=== PATIENT | female | born 1950 | race Caucasian/White ===

== ENCOUNTER 2019-10-09 15:52 | Inpatient (IN) | payer MEDICARE ==
[~2019-10-09] VITALS: Ht 162.6 cm; Wt 135.9 kg
[2019-10-09] VITALS (7 sets, daily range): BP systolic 69–110; BP diastolic 45–87; BMI 49.2
[2019-10-09 16:39] LABS: BASOPHILS 0.8 % (0-2); EOSINOPHILS 0.7 % (0-7); HEMATOCRIT 26.6 % (36.0-48.0); HEMOGLOBIN 7.9 g/dL (12-16); IMMATURE GRANULOCYTES 4.2 % (0-5); LYMPHOCYTES 13.7 % (15-50); MCH 25.3 pg (26.0-34.0); MCHC 29.7 g/dL (31.0-37.0); MCV 85.3 fL (80.0-100.0); MEAN PLATELET VOLUME 9.4 fL (7.4-10.4); MONOCYTES 12.6 % (2-11); PLATELET COUNT 53 10x3/uL (130-400); RBC 3.12 10x6/uL (4.00-5.40); RDW 27.1 % (11.5-14.5); WBC 8.8 10x3/uL (4.8-10.8)
[2019-10-09 16:50] LABS: INR 1.6 (0.85-1.17); PROTIME 18.9 SECONDS (11.6-15.0)
[2019-10-09 16:58] LABS: CALC OSMOLALITY 269 mosm/kg (275-300); CALCIUM 8.1 mg/dL (8.5-10.1); CARBON DIOXIDE 32.8 mmol/L (21.0-32.0); CHLORIDE - SERUM 98 mmol/L (98-107); CREATININE - SERUM 4.1 mg/dL (0.6-1.3); GLUCOSE 139 mg/dL (74-106); POTASSIUM - SERUM 3.7 mmol/L (3.5-5.1); SODIUM 131 mmol/L (136-145); UREA NITROGEN 27 mg/dL (7-18); eGFR NON AFRICAN AMERICAN 11 mL/min (90-120)
--- NOTE | 2019-10-09 17:20 | NUR ---
MD NOTIFED THAT PT BP IS LOW, ORDERED DOPAMINE.
[2019-10-09 17:35] LABS: ALBUMIN 2.5 g/dL (3.4-5.0); ALKALINE PHOSPHATASE 237 U/L (30-120); ALT (SGPT) 25 U/L (10-68); BILIRUBIN - TOTAL 3.67 mg/dL (0.2-1.3); CKMB 2.1 U/L (0.0-3.6); CREATINE KINASE 25 UL (21-215); MAGNESIUM - SERUM 2.1 mg/dL (1.8-2.4); PRO BNP 10508 pg/mL (0-125); PROTEIN - SERUM 6.8 g/dL (6.4-8.2); THYROID STIMULATING HORMONE 4.34 uIU/mL (0.36-3.74); TROPONIN-I 0.043 ng/mL (0.000-0.060)
[2019-10-09 17:41] LABS: C-REACTIVE PROTEIN 6.9 mg/dL (0.0-0.9); PLATELET ESTIMATE DECREASED
--- NOTE | 2019-10-09 19:39 | NUR ---
PT TO RADIOLOGY VIA STRETCHER AT THIS TIME.
--- NOTE | 2019-10-09 20:22 | NUR ---
PT RETURNED FROM RADIOLOGY AT THIS TIME.
--- NOTE | 2019-10-09 20:50 | NUR ---
PT'S O2 SAT 88% SINCE FALLING ASLEEP AND BREATHING THROUGH MOUTH EDP INFORMED, VERBAL ORDERS TO PLACE PT ON 40 % VENTI MASK. RT PAGED FOR MASK, NONE IN DEPARTMENT.
--- NOTE | 2019-10-09 21:05 | NUR ---
RT AT PT'S BEDSIDE.
--- NOTE | 2019-10-09 21:37 | NUR ---
PT'S O2 SAT STILL NOT IMPROVING WITH MASK, EDP INFORMED. PT MOVED TO TRAUMA ROOM FOR INTUBATION.
--- NOTE | 2019-10-09 22:10 | NUR ---
EDP TAN AND RESPIRATORY AT BEDSIDE. PT INTUBATED WITH 7.5 ETT. 25 AT THE LIP.
--- NOTE | 2019-10-09 23:16 | NUR ---
patient arrived to unit. no sedation. patient trying to pull at tube. no restraints on. patient gagging on et tube. see assessment.
--- NOTE | 2019-10-09 23:34 | NUR ---
PATIENT INTUBATED UNABLE TO DO SRS AND HISTORY
--- NOTE | 2019-10-09 23:39 | NUR ---
called er nurse to see why vanc was not given at 6 pm and patient arrived at 1030 to unit.
--- NOTE | 2019-10-09 23:43 | NUR ---
dopamine infusing at 25 mcg upon arrival. max is 20 mcg per order.
[2019-10-09 23:47] LABS: CKMB 3.2 U/L (0.0-3.6); CREATINE KINASE 35 UL (21-215); TROPONIN-I 0.056 ng/mL (0.000-0.060)
[2019-10-10] VITALS (70 sets, daily range): BP systolic 78–122; BP diastolic 51–88; Ht 162.6 cm; Wt 135.9 kg
--- NOTE | 2019-10-10 04:45 | NUR ---
SPOKE WITH DR ESTEBAN. NEW ORDERS
[2019-10-10 05:32] LABS: CREATINE KINASE 25 UL (21-215)
[2019-10-10 05:56] LABS: BASOPHILS 0.5 % (0-2); EOSINOPHILS 0.9 % (0-7); HEMATOCRIT 30.3 % (36.0-48.0); HEMOGLOBIN 9.1 g/dL (12-16); IMMATURE GRANULOCYTES 3.6 % (0-5); LYMPHOCYTES 13.9 % (15-50); MCH 25.3 pg (26.0-34.0); MCV 84.4 fL (80.0-100.0); MONOCYTES 16.9 % (2-11); NEUTROPHILS 64.2 % (40-80); RBC 3.59 10x6/uL (4.00-5.40); RDW 27.2 % (11.5-14.5); WBC 8.6 10x3/uL (4.8-10.8)
[2019-10-10 05:59] LABS: PLATELET COUNT 83 10x3/uL (130-400)
[2019-10-10 06:08] LABS: ANION GAP 12.1 mmol/L (8-16); CALCIUM 8.9 mg/dL (8.5-10.1); CARBON DIOXIDE 25.5 mmol/L (21.0-32.0); CREATININE - SERUM 4.5 mg/dL (0.6-1.3)
[2019-10-10 06:09] LABS: ALBUMIN 2.7 g/dL (3.4-5.0)
[2019-10-10 06:12] LABS: POTASSIUM - SERUM 4.6 mmol/L (3.5-5.1)
[2019-10-10 06:23] LABS: TROPONIN-I 0.066 ng/mL (0.000-0.060)
--- NOTE | 2019-10-10 07:00 | NUR ---
RECEIVED BEDSIDE REPORT ON PATIENT AND ASSUMED CARE. PATIENT SEDATED ON VENT, SETTINGS ARE TV 500, AC 15, PEEP 7, AND FIO2 60%. SPO2 - 92% WITH BBS - COARSE CRACKLES, DIMINISHED IN THE BASES. IV 20 GA TO RIGHT AC INFUSING LEVOPHED AT 30 MCG/MIN AND VASOPRESSIN AT 0.02 UNITS/HR. IV 22 GA TO RIGHT WRIST INFUSING PROPOFOL AT 30 MCG/KG/MIN. HEMOSPLIT NOTED TO UPPER RIGHT CHEST. ETT - 7.5. RESTRAINTS IN PLACE. PATIENT TURNED AND REPOSITIONED IN BED. HEAD TO TOE ASSESSMENT COMPLETED.
--- NOTE | 2019-10-10 08:47 | NUR ---
DR. MCGOVERN AT ROOM TO PLACE ART LINE, NO FAMILY TO OBTAIN CONSENT, PLACED EMERGENT. ART LINE TO LEFT RADIAL ARTERY PLACED, LEVELED AND ZEROED.
--- NOTE | 2019-10-10 09:05 | NUR ---
DR. LEYVA AT ROOM TO PLACE TRIALYSIS CATH EMERGENT NO FAMILY CONTACT INFORMATION AVAILIABLE. PLACED TRIALYSIS CATH TO LEFT SUBCLAVIAN AND REMOVED OLD HEMOSPLIT FROM RIGHT SUBCLAVIAN. CXR OBTAINED AND OK TO USE NURSE PORT.
--- NOTE | 2019-10-10 09:15 | NUR ---
PATINET TURNED AND REPOSITIONED IN BED. GIVEN [facility] BATH AND LINENS CHANGED. VSS.
[2019-10-10 10:56] LABS: CKMB 1.9 U/L (0.0-3.6); CREATINE KINASE 20 UL (21-215); TROPONIN-I 0.115 ng/mL (0.000-0.060); VANCOMYCIN - RANDOM 15.9 ug/mL (10.0-20.0)
--- NOTE | 2019-10-10 11:00 | NUR ---
REASSESSMENT COMPLETED. VSS. PATIENT TURNED AND REPOSITIONED IN BED.
--- NOTE | 2019-10-10 12:10 | NUR ---
DR. DUNAWAY AT ROOM UPDATED AND EXAMINED PATIENT. REPOSITIONS ETT TO 23 CM.
--- NOTE | 2019-10-10 14:09 | NUR ---
IN AND OUT CATHERIZATION PERFORMED WITH 28 CC OF DARK, JOHNNY, CONCENTRATED URINE OBTAINED AND SENT TO LAB. SPUTUM CULTURE ALSO OBTAINED BY RT AND SENT TO LAB. VSS.
[2019-10-10 14:14] LABS: UDS - AMPHET NEGATIVE QUAL (NEGATIVE); UDS - BARB NEGATIVE QUAL (NEGATIVE); UDS - BENZO NEGATIVE QUAL (NEGATIVE); UDS - COCAINE NEGATIVE QUAL (NEGATIVE); UDS - OPIATE NEGATIVE QUAL (NEGATIVE); UDS - PCP NEGATIVE QUAL (NEGATIVE); UDS - THC NEGATIVE QUAL (NEGATIVE)
[2019-10-10 14:32] LABS: BILIRUBIN NEGATIVE (NEGATIVE); GLUCOSE NEGATIVE (NEGATIVE); KETONE NEGATIVE (NEGATIVE); NITRITE NEGATIVE (NEGATIVE); SPECIFIC GRAVITY 1.015 (1.005-1.020); UROBILINOGEN NORMAL (NORMAL)
[2019-10-10 14:34] LABS: BACTERIA MODERATE /hpf (NEGATIVE); RED CELLS - URINE 0-5 /hpf (0-5); WHITE CELLS - URINE >50 /hpf (NEGATIVE)
--- NOTE | 2019-10-10 14:36 | NUR ---
SPOKE TO DR. ESTEBAN AND UPDATED ON PATIENT CONDITION. ADVISED SON WOULD BE ARRIVING LATER TODAY. ADVISED TO GIVE AN ADDITIONAL 50 GM OF ALBUMIN.
--- NOTE | 2019-10-10 15:06 | NUR ---
REASSESSMENT COMPLETED. VSS. TURNED AND REPOSITIONED IN BED.
--- NOTE | 2019-10-10 23:11 | NUR ---
patient monitor displayed asystole. i was in the room during this time maxing her out on dobutamine. bp at this time was 85 systolic. with a map of 65. patient went in pea and then asystole. code started at 2905. see code blue sheet
--- NOTE | 2019-10-10 23:24 | NUR ---
2200- patient blood pressure dropped. dopamine initiated.
--- NOTE | 2019-10-10 23:24 | NUR ---
family at bedside. awaiting more family arrival
--- NOTE | 2019-10-10 23:25 | NUR ---
at 2220 patient blood pressure dropped from 88 systolic to 75. line zeroed. correct bp display after line zeroed.
--- NOTE | 2019-10-10 23:55 | NUR ---
dr graff has spoke with family. dnr requested. dr graff at bedside.
[2019-10-11] VITALS (33 sets, daily range): BP systolic 54–94; BP diastolic 38–64
--- NOTE | 2019-10-11 00:19 | NUR ---
called dr edwards with update on patient progress.
--- NOTE | 2019-10-11 00:55 | NUR ---
patient hr 30 at this time. family at bedside.
[2019-10-11 04:42] LABS: BASOPHILS 0.3 % (0-2); EOSINOPHILS 0.2 % (0-7); HEMATOCRIT 25.8 % (36.0-48.0); IMMATURE GRANULOCYTES 3.4 % (0-5); LYMPHOCYTES 14.8 % (15-50); MCH 25.7 pg (26.0-34.0); MCHC 28.7 g/dL (31.0-37.0); MEAN PLATELET VOLUME 10.4 fL (7.4-10.4); MONOCYTES 15.1 % (2-11); NEUTROPHILS 66.2 % (40-80); RBC 2.88 10x6/uL (4.00-5.40); RDW 27.4 % (11.5-14.5); WBC 10.4 10x3/uL (4.8-10.8)
[2019-10-11 05:02] LABS: ALBUMIN 3.3 g/dL (3.4-5.0); ANION GAP 20.4 mmol/L (8-16); BILIRUBIN - TOTAL 5.33 mg/dL (0.2-1.3); CALCIUM 8.3 mg/dL (8.5-10.1); CARBON DIOXIDE 19.7 mmol/L (21.0-32.0); CREATININE - SERUM 5.3 mg/dL (0.6-1.3); MAGNESIUM - SERUM 2.1 mg/dL (1.8-2.4); PHOSPHOROUS 6.7 mg/dL (2.5-4.9); POTASSIUM - SERUM 5.1 mmol/L (3.5-5.1); PROTEIN - SERUM 6.8 g/dL (6.4-8.2); T4 THYROXINE 14.1 ug/dL (4.7-13.3); VANCOMYCIN - PEAK 23.6 ug/mL (18.0-26.0)
[2019-10-11 05:28] LABS: MCV 89.6 fL (80.0-100.0); PLATELET COUNT 115 10x3/uL (130-400)
[2019-10-11 05:30] LABS: APTT 44.3 SECONDS (22.8-39.4); D-DIMER-QUANTITATIVE 3.77 ug/mLFEU (0.20-0.54); HEMOGLOBIN 7.4 g/dL (12-16); INR 2.05 (0.85-1.17); PROTIME 22.8 SECONDS (11.6-15.0)
--- NOTE | 2019-10-11 05:33 | NUR ---
patient declining. brother of patient states that he wants terminal extubation but is not sure if the son would want that. son is resting and brother does not want me to wake him up to ask that. stated that once the son woke up they would discuss if they wanted a terminal extubabtion
--- NOTE | 2019-10-11 05:34 | NUR ---
0300-patient still maxed out on vent, levo, vaso and dopamine. son not ready to terminally extubate at this time.
--- NOTE | 2019-10-11 07:00 | NUR ---
RECIEVED BEDSIDE REPORT ON PATIENT AND ASSUMED CARE. PATIENT ON VENT WITH BROTHER AT BEDSIDE, VENT SETTINGS AC - 15, TV 500, PEEP 7, FIO2 - 100% WITH SPO2 85%. BBS - COARSE CRAKLES NOTED. PUPILS ARE FIXED AND DILATED AT 8MM AND NO RESPONSE TO PAINFULL STIMULI. SEDATION STOPPED AND REMOVED FROM RESTRAINTS. CM - AFIB, CONTROLLED. ART LINE LEVELED AND ZEROED. IV 20 GA TO RIGHT AC INFUSING NS AT 30 ML/HR, IV 22 GA TO RIGHT WRIST INFUSING PROPOFOL AT 30 MCG/KG/MIN, TRIALYSIS CATH TO LEFT SUBCLAVIAN INFUSING DOPAMINE AT 30 MCG/KG/MIN, LEVOPHED AT 30 MCG/MIN AND VASOPRESSIN AT 0.04 UNITS/H. HEAD TO TOE ASSESSMENT COMPLETED.
--- NOTE | 2019-10-11 08:20 | NUR ---
SPOKE AT LENGTH TO PATIENTS SON ALONA AND BROTHER, THEY ARE WISHING TO MAKE PATIENT COMFORT CARE AND TO TERMINALLY EXTUBATE PATIENT. NOTIFIED DR. ESTEBAN AND DR. DUNAWAY AND PER DR. DUNAWAY TERMINAL EXTUBATION ORDER SET PLACED. FAMILY EDUCATED ON WHAT TO EXPECT DURING THIS PROCESS.
--- NOTE | 2019-10-11 08:57 | NUR ---
PATIENT TERMINALLY EXTUBATED PER ORDER AND FAMILY WISHES.
--- NOTE | 2019-10-11 09:05 | NUR ---
DR. ESTEBAN NOTIFIED OF PATIENT HAVING CESSATION OF RESPIRATIONS AND HEART BEAT.
--- NOTE | 2019-10-11 09:07 | NUR ---
DR. DUNAWAY AT ROOM AND PRONOUNCES PATIENT. FAMILY REQUESTS [facility] HOME. VELVET CALLED BACK AND STATES PATIENT DOES NOT MEET CRITERIA FOR DONATION PER LUIS, REFERENCE NUMBER [id number]. SENIOR [employer] NET DEVELOPER NOTIFIED OF PATIENT EXPIRING AND HAVING BEEN IN RESTRAINTS WITHIN THE PAST 7 DAYS.
--- NOTE | 2019-10-11 09:13 | NUR ---
NOTIFIED VELVET OF PATIENT PASSING SPOKE TO [employer] ([phone]) AWAITING A CALL BACK.
--- NOTE | 2019-10-11 10:00 | NUR ---
SPOKE TO SARATH العراقي PST SPECIALIST REGARDING PATIENTS . OK TO RELEASE THE BODY.
--- NOTE | 2019-10-11 10:43 | NUR ---
POST MORTEM CARE COMPLETD AND HOME CONTACTED.
--- NOTE | 2019-10-11 11:31 | NUR ---
BODY RELEASED TO [facility].
--- NOTE | 2019-10-12 07:20 | EC ---
PATIENT:ZAKI HERNANDEZ DATE OF SERVICE: 10/09/19 SEX: F MEDICAL RECORD: [id number] DATE OF : 46 LOCATION:[facility] AGE OF PATIENT: 69 ADMISSION DATE: 10/09/19 REFERRING PHYSICIAN: INTERPRETING PHYSICIAN: JASON SAL MD ECHOCARDIOGRAM REPORT ECHO CHARGES 4 ECHO COMPLETE Date: 10/10/19 CLINICAL DIAGNOSIS: EVALUATE LV FUNCTION, MR, TR ECHOCARDIOGRAPHIC MEASUREMENTS (adult normal given) AC root (d.<3.7cm) 2.6 cm LV Septum d (<1.2 cm> 1.5 cm Valve Excursion 1.4 cm LV Septum (systole) 1.6 cm Left Atria (s.<4.0cm> 4.8 cm LVPW d(<1.2cm) 0.6 cm RV (d.<2.3cm) 3.6 cm LVPW (sytole) 1.2 cm LV diastole(<5.6CM) 6.3 cm MV E-F(>70mm/sec) cm LV systole 5.3 cm LVOT Diameter 1.5 cm MV exc.(>10mm) cm Est.ejection fraction (50-75%) % DOPPLER: LVIT cm/sec A 32 cm/sec E 121 cm/sec LA cm/sec RVSP 36.4 mmHg LVOT 82 cm/sec AOP1/2T m/s Asc. Ao 151 cm/sec RVOT 57 cm/sec RA cm/sec PA 89 cm/sec AV Gradient Peak 9.1 mmHg AV Mean 4.8 mmHg AV Area 1.1 cm MV Gradient Peak 10.5 mmHg MV Mean 3.5 mmHg MV Area cm COMMENTS: Lead Electrical Engineer: Dave NUNEZ Computer Forensics Investigator: Renny Sal TAPE# PACS Pericardial Effusion N DATE OF SERVICE: FINDINGS: Ejection fraction is 35% to 40%. There is regional wall motion abnormalities in the anterior septum, which has some thinning. The left atrium is njgcqfuwdm-fv-oboslawn enlarged. The aortic valve appears to be tricuspid structure and normal. The mitral valve is thickened. There is yryvnpvu-rm-xsmjke eccentric mitral ECHOCARDIOGRAM REPORT [id number] ZAKI HERNANDEZ regurgitation. Tricuspid valve has severe tricuspid regurgitation. The right ventricle is severely enlarged and mildly hypokinetic with right ventricular hypertrophy. The right ventricular systolic pressure appears to be elevated in 40 to 50 mmHg range. There is mild pulmonic insufficiency. IMPRESSION: The patient has a dilated and looks like an ischemic cardiomyopathy with wall motion abnormalities and severe valvular regurgitation and pulmonary hypertension. TRANSINT:[id number] Voice Confirmation ID: [id number] DOCUMENT ID: [id number] JASON SAL MD at 0720 CC: [id number] DICTATION DATE: 10/11/19 1035 [employer] SUPERVISOR: 10/11/19 1156 DIS IN 10/11/19 [place] [id number] [place] [id number]
--- NOTE | 2019-10-14 11:31 | NUR ---
Per CMS Protocol, restraint report logged into data base.
== END 2019-10-11 12:28 | DRG 871 ==
LOC: D.ER 15:52 → D.M2 19:58 → D.ICU 19:58
PROVIDERS: Family Medicine; Internal Medicine Pulmonary Disease; ADMIT Internal Medicine; ATTEND Internal Medicine
PROC: 03HY32Z Insertion of Monitoring Device into Upper Artery, Percutaneous Approach (ICD-10-PCS; principal; 2019-10-10)
PROC: 4A133B1 Monitoring of Arterial Pressure, Peripheral, Percutaneous Approach (ICD-10-PCS; 2019-10-10)
PROC: 4A133J1 Monitoring of Arterial Pulse, Peripheral, Percutaneous Approach (ICD-10-PCS; 2019-10-10)
PROC: 05H633Z Insertion of Infusion Device into Left Subclavian Vein, Percutaneous Approach (ICD-10-PCS; 2019-10-10)
PROC: 5A1945Z Respiratory Ventilation, 24-96 Consecutive Hours (ICD-10-PCS; 2019-10-10)
PROC: 0BH17EZ Insertion of Endotracheal Airway into Trachea, Via Natural or Artificial Opening (ICD-10-PCS; 2019-10-10)
PROC: 0JPT3XZ Removal of Tunneled Vascular Access Device from Trunk Subcutaneous Tissue and Fascia, Percutaneous Approach (ICD-10-PCS; 2019-10-10)
DX: A41.9 Sepsis, unspecified organism (principal); J96.01 Acute respiratory failure with hypoxia; N18.6 End stage renal disease; J18.9 Pneumonia, unspecified organism; R65.21 Severe sepsis with septic shock; J96.02 Acute respiratory failure with hypercapnia; E87.2 Acidosis; E87.1 Hypo-osmolality and hyponatremia; J90 Pleural effusion, not elsewhere classified; J44.9 Chronic obstructive pulmonary disease, unspecified; E11.649 Type 2 diabetes mellitus with hypoglycemia without coma; K74.60 Unspecified cirrhosis of liver; D64.9 Anemia, unspecified; D69.6 Thrombocytopenia, unspecified; I50.9 Heart failure, unspecified; E66.01 Morbid (severe) obesity due to excess calories